=== PATIENT | female | born 1965 | race Caucasian/White ===

== ENCOUNTER → 2016-08-28 | Outpatient (CLI) | payer MEDICAID ==
--- NOTE | 2016-08-28 19:07 | DX ---
Bilateral Hands and Feet Clinical History: 50-year-old female with arthritic pain. Rule out rheumatoid arthritis, and compare to 2013. ICD 10 Diagnostic Code: M05.89. Comparison Study: Hand and feet radiographs, dated November 10, 2012. Findings: BILATERAL HANDS (2 Views, at 12:11 p.m.): Bone mineralization is preserved. There has been some progr ession in the degree of radiocarpal and intercarpal joint space narrowing. There is some slight osseo us remodeling involving the radial portions of each of the index finger proximal phalanges at the MCP joint levels, although this appears unchanged from before. There is some mild subchondral sclerosis associated with the distal portions of each thumb proximal phalanx at the interphalangeal joints, rig ht greater than left, slightly progressive from before. There is no fracture, dislocation, periostiti s, or soft tissue calcification. Impression: Progressive disease since 2013. BILATERAL FEET (2 Views, at 12:10 p.m.): Bone mineralization is preserved. Bilateral hallux valgus co nfigurations are seen, right greater than left, with some subchondral sclerosis at the MTP joint leve ls and mild joint space narrowing. The tarsometatarsal alignments are anatomic. There are small poste rior calcaneal enthesophytes involving the plantar aponeurosis and Achilles tendon insertion points, slightly more pronounced than on the previous exam. There is no ankle joint effusion, or soft tissue calcification. There is no new marginal erosion. Impression: 1. 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 2. Posterior calcaneal enthesophytoses which have slightly progressed since before.
== END ==
LOC: BMCIMAGING 12:04
PROVIDERS: ATTEND Internal Medicine Rheumatology
DX: M20.11 Hallux valgus (acquired), right foot (principal); M20.12 Hallux valgus (acquired), left foot; M19.071 Primary osteoarthritis, right ankle and foot; M19.072 Primary osteoarthritis, left ankle and foot

== ENCOUNTER → 2018-01-13 | Outpatient (CLI) | payer MEDICAID | LOC: BMCIMAGING 11:45 | PROVIDERS: ATTEND Internal Medicine Rheumatology | DX: M20.11 Hallux valgus (acquired), right foot (principal); M06.9 Rheumatoid arthritis, unspecified ==

== ENCOUNTER 2018-02-26 21:31 | Emergency (ER) | payer MEDICAID ==
--- NOTE | 2018-02-26 22:28 | EDPHY ---
H & P Time Seen by Provider: 02/26/18 21:35 HPI/ROS: CHIEF COMPLAINT: Right hand injury HISTORY OF PRESENT ILLNESS: 52-year-old female presents to the emergency department with injury to her right hand. The patient was at home and was closing a window and the window fell and crushed her right 2nd and 3rd fingers. The incident happened just prior to arrival. She complains of isolated pain in her right 2nd and 3rd fingers. She denies pain in her right wrist. Denies paresthesias. She thinks her last tetanus shot was in her 20s and does not want another tetanus shot. ROS: Denies numbness or tingling in her fingers, retained foreign body or other injury. Past Medical/Surgical History: Rheumatoid arthritis, tonsillectomy, splenectomy, thyroidectomy Social History: Smoking Status: Never smoked Physical Exam: On examination the patient has a 2 cm flap laceration to the distal, palmar aspect of the right 2nd finger. This is overlying D IP joint. She has full range of motion of her right index finger. She also has full range of motion of her right middle finger with some mild diffuse tenderness with palpation. No rotational deformities noted. Normal sensation to light touch with normal 2 point discrimination. The other fingers do not appear injured. Constitutional: Initial Vital Signs Temperature (C) 36.7 C 02/26/18 21:40 Heart Rate 77 02/26/18 21:40 Respiratory Rate 16 02/26/18 21:40 Blood Pressure 112/78 02/26/18 21:40 O2 Sat (%) 99 02/26/18 21:40 O2 Delivery Mode Room Air Allergies/Adverse Reactions: Penicillins Allergy (Intermediate, Verified 09/18/12 17:53) yeast infection dairy,soy,wheat,corn Allergy (Uncoded 09/18/12 17:53) Home Medications: Medication Instructions Recorded ARMOUR THYROID 02/26/18 Enbrel 02/26/18 Malarone 250/100 mg Tab (*) 02/26/18 MDM/Departure - MDM Imaging Results: Imaging Impressions Hand X-Ray 02/26/18 22:10 Impression: 1. Negative for fracture. 2. No radiopaque foreign body is seen. 3. Degenerative changes are identified. Imaging: I viewed and interpreted images myself Procedures: Laceration repair. Verbal consent was obtained from the patient. The 2 cm flap laceration on the right index finger was anesthetized using digital block using 1% lidocaine without epinephrine 0.5% bupivacaine without epinephrine. The wound was irrigated with saline, draped and explored to its base with a gloved finger. There were no deep structures involved. No tendon injury was identified. The wound was repaired with 4 0 Ethilon, 4 sutures. The wound repair was simple. The procedure was performed by myself. ED Course/Re-evaluation: Patient refused tetanus shot. The wound was repaired, see procedure note. X-rays reveal no fractures. Patient was given wound care precautions. - Depart Disposition: Home, Routine, Self-Care Clinical Impression: Laceration of right index finger Qualifiers: Encounter type: initial encounter Damage to nail status: without damage Foreign body presence: without foreign body Qualified Code(s): S61.210A - Laceration without foreign body of right index finger without damage to nail, initial encounter Contusion of right hand Qualifiers: Encounter type: initial encounter Qualified Code(s): S60.221A - Contusion of right hand, initial encounter Condition: Good Instructions: Care For Your Stitches (ED), Laceration (ED), Acute Wounds (ED) Additional Instructions: Wound Care Follow-Up: Removal of sutures in 10 days. Suture removal is complimentary in uncomplicated cases. Infection or abnormal findings would require reevaluation by the MD. In that case, you may be billed. Ibuprofen 600 mg every 8 hr as needed for pain. Referrals: Nicole Ureña MD [Primary Care Provider] - As per Instructions
[2018-02-26 23:10] VITALS: BP 132/81
== END 2018-02-26 23:10 | disposition home or self-care (01) ==
PROC: 0HQFXZZ Repair Right Hand Skin, External Approach (ICD-10-PCS; principal; 2018-02-26)
DX: S61.210A Laceration without foreign body of right index finger without damage to nail, initial encounter (principal); S60.221A Contusion of right hand, initial encounter; W20.8XXA Other cause of strike by thrown, projected or falling object, initial encounter; Y92.009 Unspecified place in unspecified non-institutional (private) residence as the place of occurrence of the external cause; Y99.8 Other external cause status; Y93.89 Activity, other specified